=== PATIENT | female | born 1995 | race Caucasian/White ===

== ENCOUNTER 2017-03-04 07:48 | Emergency (ER) | payer OTHER ==
[~2017-03-04 07:48] MED LIST: ADVAIR 2501 DISK W/D PO; ADVAIR 5001 DISK W/D PO; ALBUTEROL0.83 MG/ML INH; ALBUTEROL17 GM INH; BACTRIM DS TABL1 TA1 PO; BENZONATATE PO; CLARITIN10 MG PO; COMBIVENT MININEB INH; IBUPROFEN400 MG PO; PEN-VEE K PO; PHENERGAN25 M1 PO; PREDNISONE PO; SINGULAIR PO; VICODIN 5/1 TAB 5/50 PO; VICODIN 5/500 T1 TAB PO; ZYRTEC PO
[2017-03-04] MEDS ORDERED: ZYRTEC PO (07:55)
[2017-03-04] MEDS ORDERED: IMITREX (07:55)
[2017-03-04] MEDS ORDERED: BREO ELLIPTA 11 EACH INH (07:55)
[2017-03-04 08:25] LABS: URINE SOURCE CLEAN CATCH
[2017-03-04 08:27] LABS: URINE APPEARANCE SL CLOUDY; URINE BILIRUBIN NEG (NEG); URINE BLOOD 1+ (NEG); URINE COLOR YELLOW; URINE GLUCOSE NEG (NORM); URINE KETONE NEG (NEG); URINE LEUKOCYTE ESTERASE 1+ (NEG); URINE NITRATE POS (NEG); URINE PH 8.5 (5-8); URINE PROTEIN 2+ (NEG)
[2017-03-04 08:30] LABS: MICRO INDICATED? YES
[2017-03-04 08:33] LABS: CULTURE INDICATED? YES; URINE BACTERIA 1+ (NEG); URINE RBC 0-2 /[HPF] (0-2); URINE SQUAMOUS EPITHELIAL CELL MODERATE /[HPF]; URINE WBC 100-200 /[HPF] (0-5)
[2017-03-04 08:39] LABS: BASOPHIL% 0.3 % (0-2.5); DIFF IND NO; EOSINOPHIL# 0.2 X10e3 (0-0.7); EOSINOPHIL% 1.5 % (0.0-7.0); HEMATOCRIT 39.3 % (35.0-45.0); HEMOGLOBIN 13.2 gm/dL (12.0-16.0); LYMPHOCYTE# 1.4 X10e3 (1.0-3.5); LYMPHOCYTE% 11.2 % (17.0-45.0); MEAN CORPUSCULAR HEMOGLOBIN 33.6 PG (28-34); MEAN CORPUSCULAR HGB CONC 33.6 g/dL (30-36); MEAN PLATELET VOLUME 9.6 FL (6.5-11.5); MONOCYTE# 1.1 X10e3 (0-1.0); MONOCYTE% 8.6 % (3.0-12.0); NEUTROPHIL# 10.1 X10e3 (1.5-7.1); NEUTROPHIL% 78.4 % (40-75); PLATELET COUNT 157 X10e3 (140-420); RED BLOOD COUNT 3.93 X10e (3.90-5.30); RED CELL DISTRIBUTION WIDTH 12.6 % (11.0-15.5); WHITE BLOOD COUNT 12.9 X10e3 (4.0-10.5)
[2017-03-04 08:56] LABS: ALBUMIN SERUM 4.4 g/dL (3.5-5.0); BILIRUBIN, DIRECT 0.2 mg/dL (0.0-0.2); BILIRUBIN,INDIRECT 0.7 mg/dL (0.0-0.9); BILIRUBIN,TOTAL 0.9 mg/dL (0.2-2.0); CALCIUM SERUM 9.1 mg/dL (8.4-10.2); CREATININE SERUM 0.8 mg/dL (0.6-1.4); POTASSIUM 3.5 mmol/L (3.5-5.1); PROTEIN TOTAL SERUM 6.7 g/dL (6.0-8.3)
[2017-03-04] MEDS ORDERED: KEFLEX500 M1 PO (10:21)
[2017-03-04] MEDS ORDERED: NAPROXEN250 MG PO (10:21)
[2017-03-04] MEDS ORDERED: ZOFRAN PO (10:22)
== END 2017-03-04 10:33 | disposition home or self-care (01) ==
LOC: SED 07:48
PROVIDERS: Emergency Medicine
DX: N30.90 Cystitis, unspecified without hematuria (principal); J45.909 Unspecified asthma, uncomplicated; F17.210 Nicotine dependence, cigarettes, uncomplicated; Z79.899 Other long term (current) drug therapy
CPT/HCPCS: 36415; 80048; 80076; 81003; 84703; 85025; 87086; 87088; 87186; 96361; 96365; 96375; 99284; J0696; J2405

== ENCOUNTER 2017-04-22 18:36 | Emergency (ER) | payer OTHER ==
[~2017-04-22 18:36] MED LIST changes: +BREO ELLIPTA 11 EACH INH; +IMITREX; +KEFLEX500 M1 PO; +NAPROXEN250 MG PO; +ZOFRAN PO
== END 2017-04-22 20:08 | disposition home or self-care (01) ==
LOC: SED 18:36
DX: J44.1 Chronic obstructive pulmonary disease with (acute) exacerbation (principal); F41.9 Anxiety disorder, unspecified; F17.200 Nicotine dependence, unspecified, uncomplicated
CPT/HCPCS: 94640; 99284